=== PATIENT | male | born 1980 | race Asian ===

== ENCOUNTER 2017-01-06 19:17 | Emergency (ER) | payer OTHER ==
[2017-01-06 21:35] VITALS: BP 103/67
== END 2017-01-06 21:35 | disposition home or self-care (01) ==
LOC: ED 19:17
DX: S91.332A Puncture wound without foreign body, left foot, initial encounter (principal); X58.XXXA Exposure to other specified factors, initial encounter; Y93.89 Activity, other specified; Y92.89 Other specified places as the place of occurrence of the external cause; Y99.8 Other external cause status
CPT/HCPCS: 90715